=== PATIENT | male | born 1980 | race Caucasian/White ===

== ENCOUNTER 2021-09-28 02:41 | Observation (INO) | payer OTHER, SELFPAY ==
[2021-09-28] VITALS (10 sets, daily range): BP systolic 119–162; BP diastolic 69–101; PULSE 71–100; RESP 12–18; TEMP 36.6–37.3; O2SAT 98–100; BMI 25.7
--- NOTE | 2021-09-28 | DI.RAD.S_ITS ---
PROCEDURE: XR EYE FOREIGN BODY LT INDICATIONS: MRI SCREENING TECHNIQUE: A single view of the orbits was acquired. COMPARISON: None. FINDINGS: Soft tissues: No metallic foreign bodies are visualized around the orbits. Metallic right nares piercing. Bones: Bony structures appear unremarkable. Visualized sinuses appear clear. IMPRESSION: No unexpected radiopaque foreign body. Dictated by: Jimmy Blas M.D. on 09/28/2021 at 10:44 Approved by: Jimmy Blas M.D. on 09/28/2021 at 10:45
--- NOTE | 2021-09-28 02:46 | ED_ITS ---
HPI - Extremity Injury (Upper) General Chief Complaint: Extremity Injury, Upper Stated Complaint: right hand injury 09/23/21 at home Time Seen by Provider: 09/28/21 02:45 History of Present Illness HPI narrative: 40-year-old smoker with noncontributory medical history presents with a chief complaint of pain and swelling of his right hand after an injury a few days ago. He states that he was working with some machinery when his hand was slammed and punctured by a piece of metal and deeply lacerated overlying the thenar eminence. He presents this evening stating that over the past 6-12 hours the pain has significantly increased as has the swelling and redness of his hand. He has had purulent drainage from the laceration on the palmar surface, he can no longer make a fist, in no is a red streak on the volar aspect of his forearm extending from the wrist nearly to his elbow. He has pain in portions of his forearm and even mentions swollen lymph nodes in his axilla. He has had no fever, chills nor nausea or vomiting. He states his tetanus will need to be updated. He is right-hand dominant. Related Data Home Medications Medication Instructions Recorded Confirmed No Known Home Medications 09/28/21 09/28/21 Allergies Allergy/AdvReac Type Severity Reaction Status Date / Time Penicillins Allergy Verified 09/28/21 03:02 Review of Systems Review of Systems Narrative: GENERAL: Denies chills, fatigue, malaise, fever, sweats. HEENT: Denies sinus pain, ear pain, sore throat, difficulty swallowing, dizziness. RESPIRATORY: Denies dyspnea, cough, wheezing, hemoptysis, sputum. CARDIOVASCULAR: Denies chest pain, palpitations, orthopnea, edema, GASTROINTESTINAL: Denies nausea, vomiting, abdominal pain, diarrhea, constipation, melena. : Denies dysuria, frequency, incontinence, hematuria, urinary retention. MUSCULOSKELETAL: See HPI SKIN: See HPI NEUROLOGIC: Denies weakness, headache, numbness, change in speech, confusion, seizures, incoordination. PSYCHIATRIC: No concerning psychosocial issues. 12 point review of systems is negative except for those stated above Patient History Social History Smoking Status: Current every day smoker Exam Narrative Exam Narrative: GENERAL: [40 year old patient appears stated age. Well-developed patient, in mild distress. HEAD: Atraumatic. Normocephalic. EYES: Pupils equal round and reactive. Extraocular motions intact. No scleral icterus. No injection or drainage. ENT: Nose without bleeding, purulent drainage. Throat without erythema, tonsillar hypertrophy or exudate. Airway patent. NECK: Trachea midline. Non tender CARDIOVASCULAR: Regular rate and rhythm without murmurs, gallops, or rubs. RESPIRATORY: Clear to auscultation. Breath sounds equal bilaterally. No wheezes, rales, or rhonchi. GASTROINTESTINAL: Abdomen soft, non-tender, nondistended. EXTREMITIES: Significant swelling, erythema and warmth of the right hand, most notable on the palmar surface overlying the thenar eminence, extending into the thumb and on dorsal aspect of the hand. He is unable to make a fist. Palpation of the thenar eminence is exquisitely tender and results in expression of purulent material which has been cultured and sent to the lab. Lymphangitis noted on volar forearm extending from wrist to antecubital fossa. Compartments are soft and largely nontender BACK: Nontender without deformity or crepitance. No flank tenderness. NEURO: AOx3. SKIN: No rash or erythema of visible areas Initial Vital Signs Initial Vital Signs: Vital Signs Temperature 98.4 F 09/28/21 02:44 Pulse Rate 84 09/28/21 02:44 Respiratory Rate 18 09/28/21 02:44 Blood Pressure 162/101 H 09/28/21 02:44 Pulse Oximetry 100 09/28/21 02:44 Course Orders Ordered: ED Orders 09/28/21 02:55 Basic Metabolic Panel Stat Blood Culture Stat C-Reactive Protein Quant Stat Complete Blood Count AUTO DIFF Stat 09/28/21 03:03 XR hand RT min 3V Stat 09/28/21 03:05 Wound Culture and Gram Stain Stat 09/28/21 03:09 COVID19 - ADMIT (PHYSICIAN ASSISTANT PSYCHIATRY swab/PCR) Stat 09/28/21 03:10 MR hand RT w con Stat Vancomycin HCl/Dextrose (Vancomycin) 1,500 mg in 300 mls @ 200 mls/hr IV NOW ONE Stop: 09/28/21 04:39 Discontinued Medications Diphtheria/Tetanus/Acell Pertussis (Tet,Diph,Pertuss(Acell),Vac/Pf 0.5 Ml Syringe) 0.5 ml IM .ONCE ONE Stop: 09/28/21 03:04 Last Admin: 09/28/21 03:11 Dose: 0.5 ml Documented by: Consultations Consultation #1: Discussed with on-call orthopedist, happy to accept on his service, requests wound culture, antibiotics, NPO status an MRI with IV contrast of right hand, OR later in the day Vital Signs Vital signs: Vital Signs - 8 hr 09/28/21 02:44 Temperature 98.4 F Pulse Rate 84 Respiratory Rate 18 Blood Pressure 162/101 H Pulse Oximetry 100 MDM - Extremity Injury (Upper) Lab Data Result diagrams: 09/28/21 03:10 09/28/21 03:10 Discharge Plan Departure Patient Disposition: Admitted As Inpatient Clinical Impression: Abscess of right hand Admit Date/Time: 09/28/21 03:15 Admit Provider: Alicia Dillard
--- NOTE | 2021-09-28 03:03 | DI.RAD.S_ITS ---
PROCEDURE: XR HAND RT MIN 3V INDICATIONS: infection, pain, swelling, FB TECHNIQUE: 3 views of the hand(s) acquired. COMPARISON: None. FINDINGS: Bones: No fractures or dislocations. Carpal bones are normally aligned. No suspicious bony lesions. Soft tissues: No suspicious soft tissue calcifications. No radiopaque foreign body. Edema is present overlying the region the 1st and 2nd metacarpals. IMPRESSION: No radiopaque foreign. Prominent edema is present overlying the 1st and 2nd metacarpals possibly related to infection. No visualized acute fracture or dislocation. However, if clinical concern and/or pain persist, short interval imaging followup in 7-10 days is recommended, as occult injury cannot be definitively excluded. Dictated by: Xiomy Kumar M.D. on 09/28/2021 at 8:04 Approved by: Xiomy Kumar M.D. on 09/28/2021 at 8:09
--- NOTE | 2021-09-28 03:10 | DI.MRI.S_ITS ---
PROCEDURE: MR HAND RT WO/W CON INDICATIONS: extent of abscess, ortho requests images to wrist TECHNIQUE: Noncontrast coronal T1 spin echo and T2 fast spin echo with fat saturation, axial proton density fast spin echo and T2 fast spin echo with fat saturation, axial T1 spin echo with fat saturation, sagittal T1 spin echo and STIR through the hand and fingers. Post-contrast axial, coronal, and sagittal T1 spin echo through the hand and fingers. COMPARISON: None. FINDINGS: Image quality: Images are degraded by motion artifact and suboptimal positioning. The patient was unable to tolerate standard positioning. Bones/Joints: Gross normal alignment, without marrow contusions or fractures. No intra-osseous lesions. Extensor apparatus: No significant tendinopathy or tenosynovitis. Flexor apparatus: No significant tendinopathy or tenosynovitis. Soft tissues: Visualized muscles demonstrate normal bulk and internal signal. No intramuscular masses identified T2 hyperintense/T1 hypointense signal is seen along the ulnar aspect soft tissues, which may reflect cellulitis/edema. No discrete fluid collection is seen to suggest an abscess. Joint fluid is seen within the distal radial ulnar articulation. IMPRESSION: 1. No discrete fluid collection to suggest abscess. Consider focused ultrasound for further evaluation as clinically warranted. 2. Distal radioulnar joint effusion Dictated by: Deep Greco M.D. on 09/28/2021 at 13:16 Approved by: Deep Greco M.D. on 09/28/2021 at 13:35
[2021-09-28] MEDS: TET,DIPH,PERTUSS(ACELL),VAC/PF 0.5 ML SYRINGE IM (03:11)
[2021-09-28 03:25] LABS: Add Manual Diff / Slide Review NO; Basophils Absolute Auto 100 /uL (0-100); Basophils Percent Auto 0.6 % (0-2); Eosinophils Absolute Auto 200 /uL (0-450); Eosinophils Percent Auto 1.8 % (2-4); Hematocrit 41.1 % (41-53); Hemoglobin 13.6 g/dL (13.5-17.5); Lymphocytes Absolute Auto 1900 /uL (1100-4500); Lymphocytes Percent Auto 19.9 % (25-40); Mean Corpuscular HGB Conc 33.2 % (30-36); Mean Corpuscular Hemoglobin 30.3 PG (26-34); Mean Corpuscular Volume 91.2 fL (80-100); Monocytes Absolute Auto 900 /uL (0-900); Monocytes Percent Auto 9.6 % (3-14); Neutrophils Absolute Auto 6600 /uL (1500-7000); Neutrophils Percent Auto 68.1 % (50-75); Platelet Count 290 X10^3/uL (150-400); Red Blood Cell Count 4.51 X10^6/uL (4.5-5.9); Red Cell Distribution Width 13.4 % (11.6-14.8); White Blood Cell Count 9.7 X10^3/uL (4.5-11.0)
[2021-09-28 03:31] LABS: BUN Creatinine Ratio 11.8 (6-22); Blood Urea Nitrogen 11 mg/dL (9-20); C-Reactive Protein Quant 2.9 mg/dL (<1.0); Calcium 9.8 mg/dL (8.4-10.2); Carbon Dioxide 32 mmol/L (22-32); Chloride 99 mmol/L (98-107); Estimated Glomerular Filt Rate > 60.0 mL/min (>60); Glucose 88 mg/dL (70-100); HEMOLYSIS < 15 (0-50); Potassium 3.5 mmol/L (3.4-5.1); Sodium 139 mmol/L (137-145)
[2021-09-28] MEDS: VANCOMYCIN 1,500 MG/300 ML PIGGYBACK 200 MG IV (03:37)
[2021-09-28 04:02] LABS: COVID19 - ADMIT (NP swab/PCR) Negative (Negative)
[2021-09-28] MEDS: SODIUM CHLORIDE 0.9% 1,000 ML 125 ML IV ×2 (05:06→08:12)
[2021-09-28] MEDS: POTASSIUM CHLORIDE IN WATER 10 MEQ/100 ML PIGGYBACK 100 MEQ IV (09:10)
[2021-09-28] MEDS: OXYCODONE IR 5 MG TABLET PO (09:34)
--- NOTE | 2021-09-28 10:31 | PC.NURSE ---
Day shift: Pt off unit for MRI at approx 1030. SL.
--- NOTE | 2021-09-28 12:01 | PC.NURSE ---
Day shift: Pt back in room and is resting in bed (1145). IV fluids infusing per MAR.
--- NOTE | 2021-09-28 15:22 | PC.NURSE ---
Day shift: Pt off unit for I&D of wound in right hand. KLAUDIA.
--- NOTE | 2021-09-28 15:35 | CM.DANOTE ---
DCP Brief Assessment Patient is a 40 yo male who was admitted on 09/28/21 for Right hand injury. Pt has Self Pay for insurance and PCP is not listed. EMR was reviewed. Per MD, pt had equipment fall on his hand and puncture him and he began developing signs of infection and admitted for I&D and IV-Abx. Per Admin Counselors, attempted to contact pt via phone to discuss insurance needs for possible [employer] but pt did not answer. Per RN, pt quite sleepy today and not very talkative and pt now off floor in OR for I&D and will likely need at least a day of IV-Abx. [place] and currently resides in [place] and unknown if he has support at home. Plan: SW to follow in AM for bedside assessment and will email Admin Counselors to determine if they were able to assist pt with insurance. IVETT Deng
--- NOTE | 2021-09-28 15:38 | SUR.OPER ---
Supine on padded OR bed, head on pillow, left arm secured on padded arm boards at <90 degrees abduction,right arm draped free on black passed hand table , legs uncrossed, safety belt at thigh, tape over blanket over lower legs.
--- NOTE | 2021-09-28 15:50 | P.HP_ITS ---
History of Present Illness History of Present Illness Date Patient Seen: 09/28/21 Time Patient Seen: 16:01 Date of Onset of Symptoms: 09/25/21 Chief complaint: right hand injury 09/23/21 at home Narrative: Mr. Amaya is a 40 yo M who sustained a metal object penetrating injury 4 days ago. He is right hand dominant and has been having worsening swelling to his right hand with radiating pain towards his right arm and axila. He presented to the ED for worsening pain and pus draining out of his right palm. Patient History Family & Social History Social History: household members none Safety & Behavioral: Feels Safe in Current Yes Environment Tobacco & Substance use: Smoking Status Current every day smoker alcohol intake frequency 0-2 drinks per day Substance Use Type methamphetamine Meds Home Medications and Allergies Home Medications Medication Instructions Recorded Confirmed Type No Known Home Medications 09/28/21 09/28/21 History Allergies Allergy/AdvReac Type Severity Reaction Status Date / Time Penicillins AdvReac Mild Verified 09/28/21 15:28 Exam Vital Signs (past 8 hours): - 09/28/21 09:32 09/28/21 15:37 Temperature 97.9 F 98.4 F Pulse Rate 80 88 Respiratory Rate 16 16 Blood Pressure 157/95 H 133/73 Pulse Oximetry 98 99 Oxygen Delivery Method Room Air Oxygen Flow Rate 0 Extrem Other: right hand with palmar lesion with small opening, induration on palpation and pain with palpation. Objective Labs Result Diagrams: 09/28/21 03:10 09/28/21 03:10 Labs: Laboratory Results - last 24 hr 09/28/21 09/28/21 09/28/21 03:10 03:10 03:15 WBC 9.7 RBC 4.51 Hgb 13.6 Hct 41.1 MCV 91.2 MCH 30.3 MCHC 33.2 RDW 13.4 Plt Count 290 Neut % (Auto) 68.1 Lymph % (Auto) 19.9 L Rapides % (Auto) 9.6 Eos % (Auto) 1.8 L Baso % (Auto) 0.6 Neut # (Auto) 6600 Lymph # (Auto) 1900 Rapides # (Auto) 900 Eos # (Auto) 200 Baso # (Auto) 100 Sodium 139 Potassium 3.5 Chloride 99 Carbon Dioxide 32 BUN 11 Creatinine 0.93 Estimated GFR > 60.0 BUN/Creatinine Ratio 11.8 Glucose 88 Calcium 9.8 C-Reactive Protein 2.9 H SARS-CoV-2 (PCR) Negative Assessment & Plan Assessment & Plan narrative: 40 yo M with right palm abscess with small open wound from penetrating injury. He has purulent liquid draining from the open wound with palmar pain on exam consistent with deep wound infection. After informed consent was obtained, he was taken to the OR for emergent I&D. Time Spent With Patient Critical Care time: I spent a total of [] minutes of critical care time on this patient's care today; this time is exclusive of procedural time.
[2021-09-28] MEDS: LACTATED RINGERS 1,000 ML 42 ML IV (15:51)
[2021-09-28] MEDS: VANCOMYCIN 1,000 MG/200 ML PIGGYBACK 200 MG IV (16:24)
--- NOTE | 2021-09-28 16:48 | PM.OP.1 ---
Operative Date/Time/Diagnoses Date of procedure: 09/28/21 Time of procedure: 16:10 Pre-op diagnosis: 1. Right hand abscess in deep palm space Post-op diagnosis: same Procedure & Clinicians Procedure: 1. Incision and drainage of right hand abscess 2. Irrigation and debridment of right hand skin 4 cm length Same procedure as scheduled: Yes Indications: Mr. Amaya is a 40 yo M with progressive worsening right hand swelling and pain after penetrating injury. Informed consent was obtained and patient is taken to OR for emergent incision and drainage and irrigation and debridment of his wound infection. Surgeon: Alicia Dillard Click Yes if Unassisted: Yes Anesthesia Type: General Operative Notes Closure Type: primary Estimated Blood Loss (mL): 0 Blood products transfused: none Tourniquet time (min): 19 Procedure in detail: After informed consent was obtained and placed in the chart, patient's surgical site was marked. Patient was taken to the operating room and placed in a supine position. A tourniquet was placed on patient's right upper arm. Arm table was attached to the operating bed patient's right arm was placed onto the arm table. Patient's right hand was prepped and draped in the sterile fashion from the fingertips all the way to his upper arm. Time-out was performed and this time. Surgical marker was used to john out the patient's incision on his right hand palm next to his palmar crease. Incision was made to extend cephalad and caudal away from his small puncture wound 2 cm in each direction. Tenotomies scissors were used to dissect the tissue into the palmar wound. Once the deep palmar space was encountered, small amount of purulent material was able to be expressed approximately 2 cc. Culture swab was used to take cultures from the wound for both Gram stain culture and sensitivity. The flexor sheath itself also was filled with purulent material. After exposing the proximal and distal and of the flexor sheaths to his index finger, a Angiocath was used to irrigate the flexor sheath copiously with sterile normal saline. The proximal portion of his flexor tendon sheath was explored no additional pure no material was found proximal to his palmar crease. Unhealthy tissue including skin subcutaneous tissue and flexor tendon sheath as well as ligaments was excised in order to prevent recurrence of his infection. Approximately 2 in of packing strip was placed into the wound to allow additional infectious fluid to drain. The skin was closed with 3-0 nylon suture an interrupted fashion. Xeroform and sterile dressing was applied the patient's incision. Patient insisted on being discharged today to go home since he has a work commitment tomorrow morning at 7:00 a.m. Detailed discussion was made to the patient to monitor his symptoms. For worsening symptoms recurrence of redness swelling worsening pain he needs report back to the emergency room. Patient will be discharged on pain medication and antibiotics today Complications: none Post-operative Condition: stable Disposition: PACU Plan for aftercare: Discharge to home
[2021-09-28] MEDS: BUPIVACAINE 0.25% (PF) VIAL 30 ML INJ (16:54)
--- NOTE | 2021-09-28 17:35 | SUR.PHASEI ---
[id number] to Floor RN by phone (Howard) and questions answered. Pt meets transfer criteria. Patient awake and alert,now states Rt thumb with numbness. report given from OR-had local intra op. explained may be transient related. Patient aware can go home tonight. inquired of ride home-he states may drive self home on motorcycle. Discussed saftey reasons behind why cant drive a motorcycle or operate any motorized vehicle for 24 hours after anesthesia. Patient states in couple hours he'll be good to go and will drive. questionable if ride availability. 1720-transferred to room. anxious to put clothes on and eat. given crackers and juice. Diet waiting upstairs. patient satisfied. 1725-Zonia RN at bedside , discussed with Zonia pt may intend to drive motorcycle home and has scripts in chart for home. 1730-Dr Dillard notified of numbness in rt thumb-? local. and may ama to home by motorcycle.
--- NOTE | 2021-09-28 17:42 | PC.NURSE ---
Day shift: Pt back to AC unit from PACU at approx 1735. Has d/c orders per Dr Dillard. VS WNL. RA 97%. Pain rt hand 10/22. Per Dr Dillard if Pt goes home on his motorcycle this idris after discharge or is going to do that he needs to sign AMA paperwork.
--- NOTE | 2021-09-28 17:48 | PC.NURSE ---
Day shift: Called and talked to Dr Lu. RODRIGUEZ to d/c tele orders for acute care at this time.
--- NOTE | 2021-09-28 18:21 | PC.NURSE ---
Day shift: Pt agrees to not drive motorcycle home tonight after discharge. Pt stated i'm waiting for my friend to come with his trailer and I just want to go outside for fresh air and a smoke. Pt was told that under no circumstances is he to drive tonight or drive when taking pain medications. He agrees to this as well.
--- NOTE | 2021-09-28 18:31 | PC.NURSE ---
Day shift: Paperwork signed and all questions answered. Pt has all personal belongings and MD scripts. He ambulated with this web content writer by his side to the ED entrance. He checked on his motorcycle and went to the East of the ED entrance doors to have a smoke out of the rain. Rodrigue said his friend was on the way with a trailer for the bike. Left unit at approx 1830. Steady on his feet. No c/o of pain.
[2021-09-29 08:15] LABS: Acinetobacter baumannii Not Detected (Not Detect); Candida albicans Not Detected (Not Detect); Candida glabrata Not Detected (Not Detect); Candida krusei Not Detected (Not Detect); Candida parapsilosis Not Detected (Not Detect); Candida tropicalis Not Detected (Not Detect); E. coli Not Detected (Not Detect); Enterobacter cloacae complex Not Detected (Not Detect); Enterobacteriaceae species Not Detected (Not Detect); Enterococcus species Not Detected (Not Detect); Haemophilus influenzae Not Detected (Not Detect); KPC (carbapenem-resist gene) Not Detected (Not Detect); Listeria monocytogenes Not Detected (Not Detect); Methicillin-resistant gene Not Detected (Not Detect); Neisseria meningitidis Not Detected (Not Detect); Proteus species Not Detected (Not Detect); Pseudomonas aeruginosa Not Detected (Not Detect); Serratia marcescens Not Detected (Not Detect); Staphylococcus species Detected (Not Detect); Streptococcus agalactiae (Gr B Not Detected (Not Detect); Streptococcus pneumonia Not Detected (Not Detect); Streptococcus pyogenes (Gr A) Not Detected (Not Detect); Streptococcus species Not Detected (Not Detect); Vancomycin-rest genes A/B Not Detected (Not Detect)
--- NOTE | 2021-09-29 12:58 | CM.DPC ---
DCP Discharge last night Per Ortho MD and RN, pt had surgical intervention yesterday afternoon and was cleared for d/c to home last night around 1800 after SW shift and pt had friend coming to transport his motorcycle and transport pt home safely. Per Adm Counselors, attempted multiple times while pt was admitted to secure info for medical insurance and then pt discharged and they will attempt to follow up via phone now that pt was discharged last night 09/28/21. IVETT Deng
== END 2021-09-28 18:34 | disposition home or self-care (01) | DRG 514 ==
LOC: ED 02:48 → AC 03:30
PROVIDERS: Admitting Provider Orthopaedic Surgery Orthopaedic Surgery of the Spine; Emergency Provider Emergency Medicine; Referring Provider Emergency Medicine; Visit Provider Orthopaedic Surgery Orthopaedic Surgery of the Spine
PROC: (CPT 26020; principal; 2021-09-28 16:45)
DX: M65.041 Abscess of tendon sheath, right hand (principal); S61.441A Puncture wound with foreign body of right hand, initial encounter; W45.8XXA Other foreign body or object entering through skin, initial encounter; F17.200 Nicotine dependence, unspecified, uncomplicated; Z20.822 Contact with and (suspected) exposure to COVID-19; Z23 Encounter for immunization
CPT/HCPCS: 26020; 36415; 70030; 73130; 73220; 80048; 85025; 86140; 87040; 87070; 87075; 87077; 87147; 87150; 87185; 87186; 87205; 87635; 90471; 96365; 99284; C9803; G0378; 90715; A9579; J1100; J1885; J2250; J2405; J2704; J3010